=== PATIENT | female | born 1970 ===

== ENCOUNTER 2018-03-21 18:06 | Emergency (ER) | payer OTHER ==
[2018-03-21 18:26] VITALS: TEMP 98.6
--- NOTE | 2018-03-21 18:28 | C.PDOC ---
History Of Present Illness 47yo female, comes to ER for evaluation of upper back pain. Patient states she was lifting something and fell backwards and hit her upper back against a dumpster. She denies any weakness, numbness, tingling sensations and offers no additional medical complaints. Patient states her tetanus is up to date, and reports last booster shot was 1 year ago. Time Seen by Provider: 03/21/18 18:15 Chief Complaint (Nursing): Back Pain History Per: Patient History/Exam Limitations: no limitations Onset/Duration Of Symptoms: Hrs Current Symptoms Are (Timing): Still Present Quality Of Discomfort: "Pain" Previous Symptoms: None Associated Symptoms: denies: New Weakness, New Numbness Additional History Per: Patient Past Medical History Reviewed: Historical Data, Nursing Documentation, Vital Signs Vital Signs: Last Vital Signs Temp 98.6 F 03/21/18 18:25 Pulse 99 H 03/21/18 19:23 Resp 16 03/21/18 19:23 BP 148/96 H 03/21/18 19:23 Pulse Ox 97 03/21/18 20:11 - Medical History PMH: No Chronic Diseases Denies: Chronic Kidney Disease Surgical History: No Surg Hx Family History: States: No Known Family Hx - Social History Hx Tobacco Use: Yes Hx Alcohol Use: Yes Hx Substance Use: No - Immunization History Hx Tetanus Toxoid Vaccination: No Hx Influenza Vaccination: No Hx Pneumococcal Vaccination: No Review Of Systems Musculoskeletal: Positive for: Back Pain Neurological: Negative for: Weakness, Numbness Physical Exam - Physical Exam Appears: Non-toxic, Other (uncomfortable) Skin: Warm, Dry Head: Atraumatic, Normacephalic Eye(s): bilateral: Normal Inspection Neck: Normal ROM, No Midline Cervical Tenderness, No Paracervical Tenderness, No Step Off Deformity, Supple Chest: No Deformity, Tenderness (right upper back) Cardiovascular: Rhythm Regular, No Murmur Respiratory: No Decreased Breath Sounds, No Wheezing Gastrointestinal/Abdominal: Soft, No Tenderness Back: No Vertebral Tenderness, No Paraspinal Tenderness, Other (+ shallow abrasion and mild swelling with tenderness to right upper back, no bony tendenrss, no crepitus or step off) Extremity: Normal ROM (FROM all extremities), No Tenderness, No Pedal Edema, No Deformity, No Swelling Neurological/Psych: Oriented x3 Gait: Steady ED Course And Treatment O2 Sat by Pulse Oximetry: 97 (RA) Pulse Ox Interpretation: Normal Medical Decision Making Medical Decision Making: Impression: Right upper back injury Plan: -- XR Right sided ribs and chest -- Toradol 30mg IM 1952 XR FINDINGS: Lungs: Unremarkable. No consolidation. Pleural space: Unremarkable. No pneumothorax. Heart: Unremarkable. No cardiomegaly. Mediastinum: Unremarkable. Bones/joints: Unremarkable. No acute fracture. IMPRESSION: Negative right rib x-rays. 2007 pt with neg xray. d/c with dx contusion. Disposition Counseled Patient/Family Regarding: Studies Performed, Diagnosis, Need For Followup, Rx Given - Disposition Referrals: [facility] [Outside] Disposition: HOME/ ROUTINE Disposition Time: 20:08 Condition: IMPROVED Additional Instructions: Por favor aplique compresas fras en la parte superior derecha de la espalda a la vista de la hinchazn 2-3 veces al da janae 15 minutos. [place] ibuprofeno para el dolor. Poco a poco con de jesus mdico o clnica mdica en 2-3 underwood. Please apply cold compress to right upper back at sight of swelling 2-3 times a day for 15 minutes. Take ibuprofen for pain. FOllow up with your doctor or in medical clinic in 2-3 days. 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 - Scribe Statement The provider has reviewed the documentation as recorded by the Scribe (Caitlin Shields) Provider Attestation: All medical record entries made by the Scribe were at my direction and personally dictated by me. I have reviewed the chart and agree that the record accurately reflects my personal performance of the history, physical exam, medical decision making, and the department course for this patient. I have also personally directed, reviewed, and agree with the discharge instructions and disposition.
[2018-03-21 19:24] VITALS: BP 148/96; PULSE 99; RESP 16
[2018-03-21 20:00] VITALS: O2SAT 97
--- NOTE | 2018-03-22 08:33 | RAD ---
Date of service: 03/21/2018 PROCEDURE: Radiographs of the Chest and Right Ribs. HISTORY: hit upper back COMPARISON: None available. TECHNIQUE: Frontal radiograph of the chest and multiple oblique radiographs of the right ribs were obtained. FINDINGS: RIGHT RIBS: No fracture or focal lesion visualized. LUNGS: Clear. PLEURA: No pneumothorax or pleural fluid. CARDIOVASCULAR: Normal sized heart. No pulmonary vascular congestion. OTHER FINDINGS: None. IMPRESSION: Unremarkable radiographs of the chest and right ribs. No right rib fracture.
== END 2018-03-21 20:17 | disposition home or self-care (01) ==
LOC: C.ER 18:06
DX: S20.221A Contusion of right back wall of thorax, initial encounter (principal); W18.30XA Fall on same level, unspecified, initial encounter
CPT/HCPCS: 71101; 96372; 99283; J1885